=== PATIENT | female | born 1995 | race Caucasian/White ===

== ENCOUNTER 2017-05-24 02:10 | Emergency (ER) | payer MEDICAID, OTHER ==
[~2017-05-24] VITALS: Ht 167.6 cm; Wt 83.0 kg
[2017-05-24 02:26] VITALS: Ht 167.6 cm; Wt 83.0 kg
[2017-05-24] MEDS ORDERED: SOD CHLORIDE 0.9% 1,000 ML IV STA (02:34)
[2017-05-24 03:05] LABS: URINE BLOOD (Dip) POC Trace-intact (NEGATIVE)
--- NOTE | 2017-05-24 03:51 | RADRPT ---
PROCEDURE: ULTRASOUND OBSTETRICAL CLINICAL INDICATION: 21-year-old female with pelvic pain. TECHNIQUE: Multiple sonographic images of the pelvis were obtained. The images were reviewed on a PACS workstation. COMPARISON: None. FINDINGS: There is a single intrauterine gestation. The gestational sac is within the lower uterine segment. The mean sac diameter is 1.79 cm. This yields an estimated gestational age of 6 weeks and 4 days. Th e estimated date of delivery is January 13, 2018. There is no evidence for a pole. There is minim al pelvic free fluid. The right ovary has a normal echotexture and measures 4.2 x 1.9 x 2.7 cm. Th ere is normal flow to the right ovary. The left ovary was not visualized. No adnexal masses are note d. IMPRESSION: 1. Single intrauterine gestation of approximately 6 weeks 4 days with gestational sac in the lower uterine segment and without evidence for a pole. Suspicious for early failed . Clinic al correlation and repeat ultrasound 1-2 weeks is suggested. 2. Minimal pelvic free fluid. 3. The left ovary was not visualized. .Justin Price MD, MD Date Time Electronically viewed and signed by .Justin Price MD, on 05/24/2017 03:50 .M/
[2017-05-24 03:59] LABS: ADD UMIC YES; UR ASCORBIC ACID NEGATIVE (NEGATIVE); UR BACTERIA FEW /HPF (NONE SEEN); UR BILIRUBIN (Dip) NEGATIVE (NEGATIVE); UR BLOOD (Dip) NEGATIVE (NEGATIVE); UR CLARITY CLEAR (CLEAR); UR COLOR STRAW (YELLOW); UR GLUCOSE (Dip) NEGATIVE (NEGATIVE); UR KETONES (Dip) NEGATIVE (NEGATIVE); UR LEUKOCYTE ESTERASE (Dip) TRACE Leu/ul (NEGATIVE); UR NITRITE (Dip) NEGATIVE (NEGATIVE); UR RBC 1 /HPF (0-5); UR SPECIFIC GRAVITY (Dip) 1.009 (1.003-1.030); UR SQUAMOUS EPITHELIAL CELL FEW /HPF (FEW); UR TOTAL PROTEIN (Dip) NEGATIVE (NEGATIVE); UR UROBILINOGEN (Dip) NEGATIVE (NEGATIVE)
[2017-05-24 04:04] LABS: WHITE BLOOD COUNT 9.2 10^3/ul (4.8-10.8)
[2017-05-24 04:05] LABS: BASOPHILS % 0.3 % (0.0-2.0); EOSINOPHILS # 0.2 10^3/ul (0.0-0.5); EOSINOPHILS % 1.8 % (0.0-7.0); HEMATOCRIT 39.1 % (37.0-47.0); HEMOGLOBIN 12.9 g/dl (12.0-16.0); LYMPHOCYTES # 1.7 10^3/ul (0.8-2.9); LYMPHOCYTES % 18.8 % (15.0-51.0); MEAN CORPUSCULAR HEMOGLOBIN 29.7 pg (29.0-33.0); MEAN CORPUSCULAR VOLUME 90.1 fl (82.0-101.0); MONOCYTE # 0.8 10^3/ul (0.3-0.9); MONOCYTES % 8.4 % (0.0-11.0); NEUTROPHIL # 6.4 10^3/ul (1.6-7.5); NEUTROPHILS % 70.2 % (39.0-77.0); PLATELET COUNT 202 10^3/UL (140-415); RED BLOOD COUNT 4.34 10^6/ul (4.20-5.40); RED CELL DISTRIBUTION WIDTH 12.9 % (11.5-14.5)
[2017-05-24] MEDS ORDERED: ACETAMINOPHEN 325 MG TAB ONE (04:06)
[2017-05-24] MEDS ORDERED: ACETAMINOPHEN 325 MG TAB PO ONE (04:30)
--- NOTE | 2017-05-24 05:24 | ERD ---
ER Documentation Chief Complaint Chief Complaint c/o abd pain x 3 days. On Flagyl for infection. (+) 7 wks preg. HPI Is a very pleasant 21-year-old female comes in with complaints of lower abdominal pain that started 2-3 days ago. Patient states she is on Flagyl for some kind of infection but is unable to relate what. Patient states she is roughly 6 weeks . History of multiple failed ablations. She is abdominal pain in the lower abdomen. Mild to moderate intensity. No other current complaints. ROS All systems reviewed and are negative except as per history of present illness. 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 Neck: Full range of motion..~ No meningismus. Resp: Clear to auscultation bilaterally Cardio: Regular rate and rhythm, no murmurs Abd: Soft, non tender, non distended. Normal bowel sounds Skin: No petechiae or rashes Back: No midline or flank tenderness Ext: No cyanosis, or edema Neur: Awake and alert Psych: Normal Mood and Affect Result Diagram: 05/24/17 0255 Results 24 hrs Laboratory Tests Test 05/24/17 02:55 05/24/17 03:05 White Blood Count 9.210^3/ul Red Blood Count 4.3410^6/ul Hemoglobin 12.9g/dl Hematocrit 39.1% Mean Corpuscular Volume 90.1fl Mean Corpuscular Hemoglobin 29.7pg Mean Corpuscular Hemoglobin Concent 33.0g/dl Red Cell Distribution Width 12.9% Platelet Count 79070^3/UL Mean Platelet Volume 12.0fl Neutrophils % 70.2% Lymphocytes % 18.8% Monocytes % 8.4% Eosinophils % 1.8% Basophils % 0.3% Nucleated Red Blood Cells % 0.0/100WBC Neutrophils # 6.410^3/ul Lymphocytes # 1.710^3/ul Monocytes # 0.810^3/ul Eosinophils # 0.210^3/ul Basophils # 0.010^3/ul Nucleated Red Blood Cells # 0.010^3/ul Urine Color STRAW Urine Clarity CLEAR Urine pH 6.0 Urine Specific [place] 1.009 Urine Ketones NEGATIVEmg/dL Urine Nitrite NEGATIVEmg/dL Urine Bilirubin NEGATIVEmg/dL Urine Urobilinogen NEGATIVEmg/dL Urine Leukocyte Esterase TRACELeu/ul Urine Microscopic RBC 1/HPF Urine Microscopic WBC 1/HPF Urine Squamous Epithelial Cells FEW/HPF Urine Bacteria FEW/HPF Urine Hemoglobin NEGATIVEmg/dL Urine Glucose NEGATIVEmg/dL Urine Total Protein NEGATIVEmg/dl Beta HCG, Quantitative 09530.0mIU/ml Bedside Urine pH (LAB) 6.0 Bedside Urine Protein (LAB) Negative Bedside Urine Glucose (UA) Negative Bedside Urine Ketones (LAB) Negative Bedside Urine Blood Trace-intact Bedside Urine Nitrite (LAB) Negative Bedside Urine Leukocyte Esterase (L Trace Current Medications Medications (Trade) Dose Ordered Sig/Antonio Route PRN Reason Start Time Stop Time Status Last Admin Dose Admin Sodium Chloride (NS) 1,000 ml @ 1,000 mls/hr Q1H STAT IV 05/24/17 02:34 05/24/17 03:33 DC 05/24/17 03:20 Acetaminophen (Tylenol Tab) 325 mg STK-MED ONCE .ROUTE 05/24/17 04:06 05/24/17 04:07 DC Acetaminophen (Tylenol Tab) 650 mg ONCE ONCE PO 05/24/17 04:30 05/24/17 04:31 DC 05/24/17 04:25 Procedures/MDM Medical decision review of old. 21-year-old female who has likely early felt termination. She is to return in 2 days for repeat ultrasound repeat beta-hCG. At this point clinically stable for outpatient management. Patient will for repeat ultrasound and hCG. Departure Diagnosis: Primary Impression: Miscarriage Condition: Stable ADRIÁN LEIGH May 24, 2017 05:24
[2017-05-24 05:56] VITALS: BP 129/79; PULSE 89; RESP 18
== END 2017-05-24 05:56 | disposition home or self-care (01) ==
LOC: E/R 02:10 → EDBD 02:10 → E/R 05:56
DX: O03.9 Complete or unspecified spontaneous abortion without complication (principal); R10.30 Lower abdominal pain, unspecified; N89.8 Other specified noninflammatory disorders of vagina
CPT/HCPCS: 36415; 76801; 76817; 81001; 84702; 85025; 86900; 86901; 87086; J7030; Z7502; Z7610; 81003

== ENCOUNTER 2017-06-17 05:41 | Emergency (ER) | END 2017-06-17 10:10 | disposition home or self-care (01) ==